=== PATIENT | male | born 1970 ===

== ENCOUNTER → 2018-10-02 13:00 | Outpatient (CLI) | payer SELFPAY | PROVIDERS: Family Provider Naturopath; PCP Naturopath | DX: Z23 Encounter for immunization (principal) | CPT/HCPCS: 90471; 90686 ==

== ENCOUNTER → 2019-09-03 10:45 | Outpatient (CLI) | payer OTHER, SELFPAY | PROVIDERS: PCP Naturopath | DX: Z23 Encounter for immunization (principal) | CPT/HCPCS: 90471; 90686 ==

== ENCOUNTER → 2020-09-08 | Outpatient (CLI) | payer OTHER, SELFPAY | PROVIDERS: PCP Naturopath; Referring Provider Internal Medicine; Visit Provider Internal Medicine | DX: Z23 Encounter for immunization (principal) | CPT/HCPCS: 90471; 90686 ==

== ENCOUNTER → 2020-09-13 09:24 | Outpatient (CLI) | payer OTHER, SELFPAY ==
[2020-09-14 00:48] LABS: COVID19 Sendout Not Detected (Not Detect)
== END ==
PROVIDERS: PCP Naturopath; Visit Provider Physician Assistant
DX: Z03.818 Encounter for observation for suspected exposure to other biological agents ruled out (principal)
CPT/HCPCS: 87635

== ENCOUNTER → 2021-07-09 12:21 | Outpatient (CLI) | payer OTHER, SELFPAY ==
[2021-07-09 12:57] LABS: COVID19 -Nasal RAPID Negative (Negative)
== END ==
PROVIDERS: Visit Provider Nurse Practitioner
DX: Z20.822 Contact with and (suspected) exposure to COVID-19 (principal); J02.9 Acute pharyngitis, unspecified; R05 Cough; R09.81 Nasal congestion
CPT/HCPCS: 87635

== ENCOUNTER → 2021-09-12 | Outpatient (CLI) | payer OTHER, SELFPAY | PROVIDERS: Referring Provider Internal Medicine; Visit Provider Internal Medicine | DX: Z23 Encounter for immunization (principal) | CPT/HCPCS: 90471; 90686 ==

== ENCOUNTER → 2021-10-24 09:27 | Outpatient (CLI) | payer OTHER, SELFPAY ==
[2021-10-24 10:12] LABS: COVID19 -Nasal RAPID Negative (Negative)
== END ==
PROVIDERS: PCP Naturopath; Referring Provider Specialist; Visit Provider Specialist
DX: Z01.812 Encounter for preprocedural laboratory examination (principal); Z20.822 Contact with and (suspected) exposure to COVID-19
CPT/HCPCS: 87635; C9803

== ENCOUNTER 2021-10-25 08:41 | Day surgery (SDC) | payer OTHER, SELFPAY ==
[2021-10-25] VITALS (8 sets, daily range): BP systolic 105–146; BP diastolic 66–91; PULSE 64–84; RESP 8–17; TEMP 36.3–36.4; O2SAT 97–99; BMI 24.4
--- NOTE | 2021-10-25 | PATH_ITS ---
[facility] Accession Number: [id number] . 01 Material submitted: . rectum - RECTAL COLON POLYP; 15 CM . 02 Diagnosis: Rectal Colon Polyp 15 cm: Multiple (approximately four) portions of hyperplastic polyp. MRV 10/30/2021 1416 Local . 02 Electronically signed: . Heather Hernandez MD, Pathologist NPI- [id number] . 01 Gross description: . The specimen is received in formalin labeled rectal colon polyp at 15 cm and consists of multiple calderon-pink fragments of soft tissue, measuring 0.7 x 0.5 x 0.2 cm in aggregate. The specimen is entirely submitted in cassette A1. ([id number]) /[facility] 10/27/2021 1557 Local . 02 Pathologist provided ICD-10: K63.5 . 02 CPT . 289557 Performed at: [address] [facility] [address] [facility], [place], [place] [id number] MD Madhu Caraballo MD Phone: [phone] Performed at: 02 [facility] [address] [place], [place] [id number] MD Larisa Sun MD Phone: [phone]
[2021-10-25] MEDS: LACTATED RINGERS 1,000 ML 200 ML IV (09:17)
--- NOTE | 2021-10-25 11:09 | PM.HP.1 ---
History of Present Illness History of Present Illness Chief complaint: SCREENING COLONOSCOPY Narrative: Patient is a gentleman here for a screening colonoscopy. He has just turned 51. This is his 1st exam. He has no GI symptoms and no family history of colon cancer. Patient History Medical History (Updated 10/25/21 @ 11:14 by James Quesada MD) Junctional escape rhythm Surgical History (Updated 10/25/21 @ 11:11 by James Quesada MD) H/O inguinal hernia repair History of wisdom tooth extraction Family & Social History Social History: household members spouse Tobacco & Substance use: Smoking Status Never smoker alcohol intake current alcohol intake frequency 0-2 drinks per day Substance Use Type does not use Meds Home Medications and Allergies Home Medications Medication Instructions Recorded Confirmed Type sodium,potassium,mag sulfates 17.5 See Rx Instructions PO .COMPLEX 10/03/21 Rx gram-3.13 gram-1.6 gram oral soln #354 ml (Suprep Bowel Prep Kit) fluticasone propionate 50 1 spray INTRANASAL DAILY 10/25/21 10/25/21 History mcg/actuation nasal spray,suspension omeprazole 20 mg PO PRN PRN 10/25/21 10/25/21 History Allergies Allergy/AdvReac Type Severity Reaction Status Date / Time sulfamethoxazole Allergy Mild Rash Verified 10/25/21 08:52 [From Bactrim] trimethoprim [From Bactrim] Allergy Mild Rash Verified 10/25/21 08:52 Review of Systems Review of Systems Narrative: Patient has no chest pain breathing issues cough or cold black or bloody bowel movements seizures blackouts Exam Vital Signs (past 8 hours): - 10/25/21 09:12 Temperature 97.3 F L Pulse Rate 64 Respiratory Rate 14 Blood Pressure 146/91 H Pulse Oximetry 99 Oxygen Delivery Method Room Air Narrative Exam Narrative: Pleasant cooperative patient no apparent distress. Lungs are clear to auscultation. No rales or rhonchi. Heart irregular with pauses but no murmur or gallop. Abdomen is soft nontender without mass. Patient is alert and oriented x3. Assessment & Plan Assessment and plan (1) Screening for colon cancer: Status: Acute Assessment & Plan narrative: Patient for screening colonoscopy. I have discussed the procedure and the rationale with the patient including risks of bleeding, perforation which would necessitate a major operation, failure to find remove all lesions and the potential to tattoo. They appeared to understand and wished to proceed. Time Spent With Patient Critical Care time: I spent a total of [] minutes of critical care time on this patient's care today; this time is exclusive of procedural time.
--- NOTE | 2021-10-25 11:25 | PM.PREOP ---
Pre-operative Note COVID-19 COVID-19 status: Negative Result date/Date tested (Pos, Neg/Pending): 10/24/21 Interval Note History & Physical reviewed/Exam performed by Physician: Yes Changes to H&P: No
--- NOTE | 2021-10-25 11:59 | P.OP.COLON_ITS ---
Operative Date/Time/Diagnoses Date of procedure: 10/25/21 Time of procedure: 11:59 Pre-op diagnosis: Screening for colon cancer. This is his 1st exam. He has turned 51. Post-op diagnosis: same (One tiny rectal polyp. One diverticulum seen in the sigmoid.) Procedure & Clinicians Study performed: Colonoscopy with cold biopsy Same procedure as scheduled: Yes Indications: Screening Surgeon: James Quesada Procedure Notes SCOAP/Timeout: Performed Procedure in detail: The patient was placed in the left lateral decubitus position and underwent IV sedation directed by the surgeon consisting of fentanyl and Versed. Digital exam was unremarkable. His prostate is mildly enlarged but without dominant mass. The scope was inserted and advanced through the rectum into the sigmoid, descending, transverse, and ascending colon. A stiffener was inserted in order to reach the cecum. The cecum was reached identified by the ileocecal valve and the appendiceal opening. The ileocecal valve was briefly cannulated. The te rminal ileum was normal in appearance. The scope was gradually brought out. One very small Polyp was found at 15 cm from the anal verge in the rectum. The scope ultimately was retroflexed in the rectum. The appearance was normal except for minor scarring. The scope was removed and the patient tolerated the procedure well. The prep was excellent. Scope withdrawal time: 10 minutes(12 total) Sedation minutes: 0 (Deep sedation provided by an anesthesiologist) Findings: divertiulosis (1 diverticulum noted.) and polyp(s) (One very small rectal polyp removed) Specimen(s): other (Polyp) Complications: none Post-procedure Recommendations: Colonoscopy in 5 years (If the polyp is not adenomatous than 10 years would be more appropriate.) Follow up: as needed Disposition: PACU
--- NOTE | 2021-10-25 12:11 | SUR.PHASEI ---
Pt from [facility] with Dr Kendall breathing unassisted. Pt now awake and alert taking coffee. SBAR report to Sharon Oswald
== END 2021-10-25 12:36 | disposition home or self-care (01) ==
PROVIDERS: PCP Naturopath; Referring Provider Specialist; Visit Provider Specialist
PROC: 0DJD8ZZ Inspection of Lower Intestinal Tract, Via Natural or Artificial Opening Endoscopic (ICD-10-PCS; CPT 45378; principal; 2021-10-25 10:00)
DX: Z12.11 Encounter for screening for malignant neoplasm of colon (principal); K57.30 Diverticulosis of large intestine without perforation or abscess without bleeding; K62.1 Rectal polyp
CPT/HCPCS: 45380; J2704

== ENCOUNTER → 2022-10-01 09:28 | Outpatient (CLI) | payer OTHER, SELFPAY | PROVIDERS: PCP Naturopath; Referring Provider Internal Medicine; Visit Provider Internal Medicine | DX: Z23 Encounter for immunization (principal) | CPT/HCPCS: 90471; 90686 ==

== ENCOUNTER → 2023-01-26 15:34 | Outpatient (CLI) | payer OTHER, SELFPAY ==
--- NOTE | 2023-01-26 16:57 | DI.MRI.S_ITS ---
PROCEDURE: MR CERVICAL SPINE WO CON INDICATIONS: Radiculopathy, Cervical region TECHNIQUE: Noncontrast sagittal T1 spin echo and T2 fast spin echo, sagittal STIR, foraminal oblique sagittal T2 fast spin echo, and axial gradient echo or T2 fast spin echo through the cervical spine. COMPARISON: None. FINDINGS: Image quality: Excellent. Alignment and Curvature: There is normal bony alignment. Bone Marrow: Marrow demonstrates normal overall signal. Spinal Cord: Visualized spinal cord has normal size and signal. No cerebellar tonsillar herniation. Paraspinous Soft Tissues: No paravertebral masses. Prevertebral soft tissues are normal in thickness. C2-C3: Normal appearance. C3-C4: Normal appearance. C4-C5: Disc height is maintained. Small posterior disc osteophyte complex and hypertrophic left uncovertebral joint results in mild central and left foraminal stenosis. No right foraminal stenosis C5-C6: Disc space narrowing and posterior disc osteophyte complex results in [id number]-jc-qwejllar central stenosis. Mild bilateral foraminal stenosis C6-C7: Normal appearance. C7-T1: Normal appearance. IMPRESSION: Degenerative disc disease and arthropathy results in varying degrees of central and foraminal stenosis including mild to moderate central stenosis at C5-6 Approved by: Fredrick Bran M.D. on 01/28/2023 at 9:27
== END ==
PROVIDERS: PCP Family Medicine; Referring Provider Physical Medicine & Rehabilitation; Visit Provider Physical Medicine & Rehabilitation
DX: M50.121 Cervical disc disorder at C4-C5 level with radiculopathy (principal); M47.22 Other spondylosis with radiculopathy, cervical region; M48.02 Spinal stenosis, cervical region
CPT/HCPCS: 72141

== ENCOUNTER 2023-02-26 16:25 | Outpatient (CLI) | payer OTHER, SELFPAY ==
[2023-02-26] VITALS (8 sets, daily range): BP systolic 115–149; BP diastolic 76–104; PULSE 66–79; RESP 10–23; TEMP 36.2; O2SAT 97–100
--- NOTE | 2023-02-26 16:35 | DI.RAD.S_ITS ---
PROCEDURE: PAIN C/T INTERLAMINAR INJECT INDICATIONS: CERVICAL STENOSIS COMPARISON: [facility], MR, MR CERVICAL SPINE WO CON, 01/26/2023, 16:59. [facility] [place], CR, XR CERVICAL SPINE 6+ VIEWS, 09/27/2022, 10:19. FINDINGS: Fluoroscopic spot filming was performed to verify placement of a spinal needle at the C5-C6 level, as labeled on the films. Appropriate location of the needle tip was confirmed by injection of iodinated contrast. IMPRESSION: No significant intraprocedural abnormality. Dictated by: Zeeshan Aragon M.D. on 02/26/2023 at 17:15 Approved by: Zeeshan Aragon M.D. on 02/26/2023 at 17:16
[2023-02-26] MEDS: MIDAZOLAM 2 MG/2 ML VIAL IV (16:55)
[2023-02-26] MEDS: IOPAMIDOL 15 ML VIAL 3 ML INJ (16:59)
[2023-02-26] MEDS: DEXAMETHASONE 10 MG/ML VIAL 30 MG INJ (16:59)
--- NOTE | 2023-02-26 16:59 | PC.NURSE ---
patient had marked weakness in his legs and feet and also felt some numbness in his buttocks on arrival to the recovery room. patient kept in recovery until he was able to stand and march in place with no issue and patient denied feelings numbness in his buttocks, legs, and feet. Patient was instructed to take it easy and to have his grand daughter at his side when transferring from his car to inside his home. Patient's grand daughter was also notified that she should be by his side and hold on to one arm while he is walking in to the house from the car. They both stated understanding.
[2023-02-26] MEDS: BUPIVACAINE 0.25% (PF) VIAL 2 ML INJ (17:00)
--- NOTE | 2023-02-26 17:12 | PC.NURSE ---
Above note entered in error. Wrong patient.
--- NOTE | 2023-02-26 17:18 | P.PCN_ITS ---
Date/Time/Diagnoses Date of procedure: 02/26/23 Time of procedure: 17:18 Pre-procedure diagnosis: 1. CERVICAL STENOSIS, 2. CERVICAL HNP WITH UPPER EXTREMITY RADICULAR FEATURES Post-procedure diagnosis: same Procedure Notes Procedure: 1. FLUORSCOPICALLY GUIDED CONTRAST CONTROLLED INTERLAMINAR EPIDURAL STEROID INJECTION - C5/6 TL IRISH Indications: Gunner is referred by Dr. Conde for treatment of Cervical HNP with Upper Extremity Paresthesias. Physician: Gunner Ibarra Total Fluoroscopy time (seconds): 35 Total sedation minutes: 14 Complications: none Procedure in detail & Post-procedure care: FINDINGS Cervical Stenosis due to disc deterioration and nerve root irritation and nerve root irritation DESCRIPTION OF PROCEDURE Fluoroscopically guided, contrast-controlled C5/6 translaminar epidural steroid injection with conscious sedation. Following review of allergy and review of potential side effects and complications, including, but not necessarily limited to, infection, allergic reaction, local tissue breakdown, temporary as well as permanent nerve injury, stroke, paralysis, and possible , the patient indicated that patient understood and agreed to proceed. An informed consent document was signed by the patient, witnessed by a nurse, and placed in the patient's chart. Additionally, other treatment options including modalities, medications, and physical therapy were reviewed with the patient. After review of previous anaesthesic history and IV conscious sedation the patient was deemed safe to proceed with today?s procedure with IV conscious sedation as ASA class II designation. Safety time-out was performed to confirm patient ID, procedure to be performed and site of procedure. IV sedation was accomplished with a combination of 2mg of Versed administered by the RN after DO order, titrated to patient comfort during the course of the procedure while the patient remained responsive to all verbal commands. In the prone position, following sterile prep and drape of the cervical region, the C5/6 translaminar space was identified fluoroscopically. The skin was anesthetized via a 25-gauge 1.5-inch needle with 1% lidocaine solution. At this point, a 25-gauge, 2.5-inch short bevel spinal needle was atraumatically introduced and advanced under fluoroscopic guidance into epidural space at the C5/6 translaminar space. Depth was confirmed on lateral view. Radiological data, including multiple fluoroscopic views of the cervical spine, reveal a spinal needle at the C5/6 translaminar space. Lateral views then show placement of the needle in the epidural space. Subsequent views show contrast material flowing superiorly and inferiorly in the epidural space. DSA fluoroscopy with live contrast injection, once again, confirmed no vascular or intrathecal uptake. At this point, using loss of resistance technique with saline and air, the epidural space was entered. Following negative aspiration, injection of approximately 1.5 cc of Isovue-200 with live fluoroscopy in the AP view confirmed epidural flow in the epidural space without vascular or intrathecal uptake observed. Subsequently, a test dose of 1 cc of 1% lidocaine solution was injected and patient was observed for two minutes without signs or symptoms of complications, including abdominal pain, shortness of breath, bilateral upper or lower extremity weakness, nausea and vomiting, prior to steroid injection. At this point, 3cc or 30mg of dexamethasone was then injected without incident. The patient tolerated the procedure well without signs or symptoms of compl ications prior to being transferred to the recovery area for further monitoring, The patient was then transferred to the recovery area where they were observed for an appropriate period of time after the injection. The patient reported a VAS score of 6 prior to the procedure and a post-procedure VAS of 0. POST OP INSTRUCTIONS The patient was provided a Pain Log to continue to record their response to the target-specific procedure prior to follow-up visit with the referring provider. Additionally, specific post-injection care instructions and a contact number to our office were provided if concerns arise regarding possible complications associated with the procedure are suspected.
== END 2023-02-26 17:31 | disposition home or self-care (01) ==
PROVIDERS: PCP Family Medicine; Referring Provider Physical Medicine & Rehabilitation; Visit Provider Physical Medicine & Rehabilitation
DX: M48.02 Spinal stenosis, cervical region (principal); M50.122 Cervical disc disorder at C5-C6 level with radiculopathy
CPT/HCPCS: 62321; 99152; J1100; J2250; J3490

== ENCOUNTER → 2023-10-22 15:17 | Outpatient (CLI) | payer OTHER, SELFPAY | PROVIDERS: PCP Family Medicine; Referring Provider Family Medicine; Visit Provider Family Medicine | DX: Z23 Encounter for immunization (principal) | CPT/HCPCS: 90471; 90686 ==

== ENCOUNTER → 2024-12-10 10:54 | Outpatient (CLI) | payer SELFPAY | PROVIDERS: PCP Family Medicine; Referring Provider Internal Medicine; Visit Provider Internal Medicine | DX: Z23 Encounter for immunization (principal) | CPT/HCPCS: 90471; 90656 ==